=== PATIENT | female | born 2000 | race Caucasian/White ===

== ENCOUNTER 2022-01-04 17:26 | Emergency (ER) | payer OTHER ==
[2022-01-04] MEDS ORDERED: DICLOFENAC SODI75 MG PO ×2 (19:33→19:39)
== END 2022-01-04 19:45 | disposition home or self-care (01) ==
LOC: FER 17:26
DX: M25.561 Pain in right knee (principal); F17.290 Nicotine dependence, other tobacco product, uncomplicated; Z91.048 Other nonmedicinal substance allergy status; W06.XXXA Fall from bed, initial encounter; Y92.009 Unspecified place in unspecified non-institutional (private) residence as the place of occurrence of the external cause
CPT/HCPCS: 73560; 96372; J1885